=== PATIENT | male | born 1990 | race Caucasian/White ===

== ENCOUNTER 2021-11-26 04:23 | Emergency (ER) | payer OTHER, MEDICAID | END 2021-11-26 06:05 | disposition home or self-care (01) | LOC: ED 04:23 | DX: S00.93XA Contusion of unspecified part of head, initial encounter (principal); M54.9 Dorsalgia, unspecified; R51.9 Headache, unspecified; M54.2 Cervicalgia; M25.522 Pain in left elbow; M25.521 Pain in right elbow; Y08.89XA Assault by other specified means, initial encounter; Y93.89 Activity, other specified; Y92.89 Other specified places as the place of occurrence of the external cause; Y99.8 Other external cause status ==

== ENCOUNTER 2023-02-07 16:39 | Emergency (ER) | payer OTHER ==
[~2023-02-07] VITALS: Wt 65.8 kg
== END 2023-02-07 18:14 | disposition home or self-care (01) ==
LOC: ED 16:39
DX: S81.012A Laceration without foreign body, left knee, initial encounter (principal); Z88.8 Allergy status to other drugs, medicaments and biological substances; W26.8XXA Contact with other sharp object(s), not elsewhere classified, initial encounter; Y93.89 Activity, other specified; Y92.89 Other specified places as the place of occurrence of the external cause; Y99.8 Other external cause status